=== PATIENT | female | born 1960 | race African-American/Black ===

== ENCOUNTER 2024-01-08 12:17 | Inpatient (IN) | payer MEDICAID ==
[~2024-01-08] VITALS: Ht 167.6 cm; Wt 72.6 kg
[~2024-01-08 12:17] MED LIST: BENZ100C86 PO; DILT240T12 MT; MED4 MT; MONT-46 PO; PULM50 HHN
[2024-01-08] MEDS: LABETALOL 5MG/ML 4ML INJ IV ONE (12:59)
[2024-01-08 13:13] LABS: HEMATOCRIT. 44.3 % (36.0-48.0); HEMOGLOBIN. 14.7 g/dL (12.0-16.0); MEAN CORPUSCULAR HEMOGLOBIN 32.3 pg (28.0-32.0); MEAN CORPUSCULAR HGB CONC 33.2 g/dL (31.0-37.0); MEAN CORPUSCULAR VOLUME 97.4 fL (81.0-99.0); MEAN PLATELET VOLUME 7.2 fl (7.4-10.4); PLATELET 321 x1000/uL (130-400); RED BLOOD CELL COUNT 4.54 mill/uL (4.2-5.4); RED CELL DISTRIBUTION WIDTH 13.1 % (11.6-14.6); WHITE BLOOD COUNT 7.1 x1000/uL (4.5-11.0)
[2024-01-08 13:22] LABS: CHLORIDE 106 mEq/L (98-107); POTASSIUM 4.4 mEq/L (3.5-5.1); SODIUM 139 mEq/L (136-145)
[2024-01-08 13:23] LABS: CARBON DIOXIDE 27 mEq/L (21-32)
[2024-01-08 13:24] LABS: CALCIUM 9.6 mg/dL (8.7-10.4)
[2024-01-08 13:28] LABS: CREATININE 0.7 mg/dL (0.6-1.0); GLUCOSE 101 mg/dL (70-105); UREA NITROGEN BLOOD 18 mg/dL (9-23)
[2024-01-08 13:40] LABS: DIFFERENTIAL COMMENT 1
[2024-01-08 13:58] LABS: TROPONIN I HIGH SENSITIVITY < 4 ng/L (3.0-34)
[2024-01-08 14:13] LABS: PLATELET ESTIMATE NORMAL
[2024-01-08] MEDS: MAGNESIUM 2 G PREMIX 50 ML IV NR (15:21)
[2024-01-08] MEDS: METHYLPREDNISOLONE SOD SUCC 125MG/2ML (ACT-O-VIAL) IV NR (15:21)
[2024-01-08 16:55] VITALS: PULSE 76; RESP 20; O2SAT 95
[2024-01-08] MEDS: ALBUTEROL (0.083%) 2.5MG/3ML NEB HHN SCH (16:55)
[2024-01-08] MEDS: IPRATROPIUM BROMIDE (0.02%) 0.5MG/2.5ML NEB HHN NR (16:55)
[2024-01-08] MEDS ORDERED: DIPHENHYDRAMINE 50MG/ML VIAL IV PRN (19:45)
[2024-01-08] MEDS ORDERED: CLONIDINE 0.1MG TABLET PO PRN (19:45)
[2024-01-09] MEDS: METHYLPREDNISOLONE SOD SUCC 40MG/ML (ACT-O-VIAL) IV SCH (00:14)
[2024-01-09 05:46] LABS: BASOPHILS % 0.3 % (0.0-2.0); EOSINOPHILS % 0.1 % (0.0-5.0); HEMATOCRIT. 45.3 % (36.0-48.0); HEMOGLOBIN. 14.8 g/dL (12.0-16.0); LYMPHOCYTES % 11.8 % (20.0-50.0); MEAN CORPUSCULAR HEMOGLOBIN 32.1 pg (28.0-32.0); MEAN CORPUSCULAR HGB CONC 32.6 g/dL (31.0-37.0); MEAN CORPUSCULAR VOLUME 98.5 fL (81.0-99.0); MEAN PLATELET VOLUME 8.1 fl (7.4-10.4); MONOCYTES % 1.1 % (2.0-8.0); NEUTROPHILS % 86.7 % (40.0-76.0); PLATELET 324 x1000/uL (130-400); RED CELL DISTRIBUTION WIDTH 13.2 % (11.6-14.6); WHITE BLOOD COUNT 8.6 x1000/uL (4.5-11.0)
[2024-01-09 05:51] LABS: CHLORIDE 104 mEq/L (98-107); POTASSIUM 4.3 mEq/L (3.5-5.1); SODIUM 137 mEq/L (136-145)
[2024-01-09 05:52] LABS: CALCIUM 9.6 mg/dL (8.7-10.4); CARBON DIOXIDE 23 mEq/L (21-32)
[2024-01-09 05:57] LABS: CREATININE 0.8 mg/dL (0.6-1.0); GLUCOSE 196 mg/dL (70-105); UREA NITROGEN BLOOD 15 mg/dL (9-23)
[2024-01-09] MEDS: ONDANSETRON HCL 4MG/2ML INJ IV PRN (09:51)
[2024-01-09 10:23] VITALS: PULSE 78; RESP 20; O2SAT 96
[2024-01-09] MEDS: IPRATROPIUM/ALBUTEROL 0.5-3(2.5)MG/3ML NEB HHN PRN (10:23)
[2024-01-09 10:29] VITALS: BP 133/83; PULSE 78; RESP 20; TEMP 96.8
[2024-01-09 11:00] VITALS: BP 133/83; PULSE 78; RESP 20; TEMP 96.8
[2024-01-09 12:00] VITALS: BP 114/78; PULSE 87; RESP 18; TEMP 97.9
[2024-01-09 16:00] VITALS: BP 132/83; PULSE 95; RESP 18; TEMP 97.8
[2024-01-09] MEDS: GUAIFENESIN-DM 200MG-20MG/10ML UDC PO PRN (17:42)
[2024-01-10 07:04] LABS: BASOPHILS % 0.1 % (0.0-2.0); HEMATOCRIT. 41.4 % (36.0-48.0); HEMOGLOBIN. 13.4 g/dL (12.0-16.0); LYMPHOCYTES % 8.1 % (20.0-50.0); MEAN CORPUSCULAR HEMOGLOBIN 31.7 pg (28.0-32.0); MEAN CORPUSCULAR HGB CONC 32.5 g/dL (31.0-37.0); MEAN CORPUSCULAR VOLUME 97.6 fL (81.0-99.0); MEAN PLATELET VOLUME 8.1 fl (7.4-10.4); MONOCYTES % 3.7 % (2.0-8.0); NEUTROPHILS % 88.1 % (40.0-76.0); PLATELET 315 x1000/uL (130-400); RED BLOOD CELL COUNT 4.24 mill/uL (4.2-5.4); RED CELL DISTRIBUTION WIDTH 13.1 % (11.6-14.6); WHITE BLOOD COUNT 13.3 x1000/uL (4.5-11.0)
[2024-01-10 07:09] LABS: CALCIUM 9.4 mg/dL (8.7-10.4); CHLORIDE 103 mEq/L (98-107); POTASSIUM 4.8 mEq/L (3.5-5.1); SODIUM 136 mEq/L (136-145)
[2024-01-10 07:10] LABS: CARBON DIOXIDE 27 mEq/L (21-32)
[2024-01-10 07:15] LABS: CREATININE 0.7 mg/dL (0.6-1.0); GLUCOSE 144 mg/dL (70-105); UREA NITROGEN BLOOD 18 mg/dL (9-23)
[2024-01-10 08:00] VITALS: BP 156/91; PULSE 82; RESP 18; TEMP 97.7
[2024-01-10] MEDS ORDERED: BENZ100C86 PO (11:53)
[2024-01-10] MEDS ORDERED: GUAI-740 MT (11:53)
[2024-01-10] MEDS ORDERED: IPRA3AMP9 NEB (11:53)
[2024-01-10] MEDS ORDERED: FLUT1DIS2 INH (11:53)
[2024-01-10] MEDS ORDERED: ALBU18HF2 IH (11:53)
[2024-01-10] MEDS ORDERED: MED4 MT (11:53)
[2024-01-10 12:00] VITALS: BP 145/80; PULSE 84; RESP 18; TEMP 97.6
[2024-01-10 13:52] VITALS: BP 145/80; PULSE 84; TEMP 97.6; O2SAT 100
== END 2024-01-10 15:40 | disposition home or self-care (01) | DRG 140 ==
LOC: ER 12:17 → 5WST 14:57 → EDBEDREQTM 15:00 → EDBEDREQ 15:00 → EDBEDREQSVC 15:00 → 8WST 01-09 10:07
PROVIDERS: ADMIT Internal Medicine; ATTEND Internal Medicine
DX: J44.1 Chronic obstructive pulmonary disease with (acute) exacerbation (principal); J96.00 Acute respiratory failure, unspecified whether with hypoxia or hypercapnia; I71.21 Aneurysm of the ascending aorta, without rupture; F12.90 Cannabis use, unspecified, uncomplicated; M25.462 Effusion, left knee; M25.461 Effusion, right knee; Z87.891 Personal history of nicotine dependence; Z90.710 Acquired absence of both cervix and uterus; Z88.6 Allergy status to analgesic agent
CPT/HCPCS: 36415; 71045; 73560; 80048; 83880; 84484; 85025; 93005; 93970; 94644; 99291; J2405; J2919; J2920; J3475; J3490